=== PATIENT | male | born 1965 | race Caucasian/White ===

== ENCOUNTER 2022-02-12 06:17 | Day surgery (SDC) | payer BC ==
[~2022-02-12] VITALS: Ht 152.4 cm; Wt 61.2 kg
[2022-02-12] MEDS ORDERED: MIDAZOLAM HCL 5 MG/5 ML VIAL ONE (07:22)
[2022-02-12] MEDS ORDERED: fentaNYL CITRATE/PF 100 MCG/2 ML AMP ONE (07:22)
[2022-02-12] MEDS ORDERED: DIPHENHYDRAMINE INJ 50 MG/ML VIAL ONE (08:42)
[2022-02-12 13:30] VITALS: BP_SYST 163
== END 2022-02-12 10:05 | disposition home or self-care (01) ==
LOC: SDS 06:17 → SMU 06:25 → SDS 10:05
PROVIDERS: ATTEND Internal Medicine
DX: Z12.11 Encounter for screening for malignant neoplasm of colon (principal); K29.50 Unspecified chronic gastritis without bleeding; B96.81 Helicobacter pylori [H. pylori] as the cause of diseases classified elsewhere; D12.8 Benign neoplasm of rectum; K74.60 Unspecified cirrhosis of liver; I85.00 Esophageal varices without bleeding; I10 Essential (primary) hypertension; E11.9 Type 2 diabetes mellitus without complications; E78.5 Hyperlipidemia, unspecified; Z88.0 Allergy status to penicillin; Z79.899 Other long term (current) drug therapy; Z20.822 Contact with and (suspected) exposure to COVID-19
CPT/HCPCS: 36415 ×2; 45338; 43239; 87426; 87081; 82962; 88305; 88312; 88313; 99152; U0003; G0378; J1200; J2250; J3010; 45346